=== PATIENT | male | born 1995 | race Hispanic/Latino ===

== ENCOUNTER 2019-07-22 17:17 | Emergency (ER) | payer OTHER ==
[2019-07-22] MEDS ORDERED: Acetaminophen 500 MG TAB ONE (17:49)
[2019-07-23 11:10] LABS: SARS-CoV-2 MS2 Positive; SARS-CoV-2 N Gene Positive; SARS-CoV-2 S Gene Positive; SARS-CoV-2 orf1ab Positive
== END 2019-07-22 18:29 | disposition home or self-care (01) ==
LOC: ERS 17:17
DX: U07.1 COVID-19 (principal); R50.9 Fever, unspecified; Z87.891 Personal history of nicotine dependence
CPT/HCPCS: 87635; 99283; U0003